=== PATIENT | female | born 1945 | race Caucasian/White ===

== ENCOUNTER 2023-03-31 17:54 | Emergency (ER) | payer MEDICARE, OTHER ==
[~2023-03-31] VITALS: Ht 160 cm; Wt 59.1 kg
[~2023-03-31 17:54] MED LIST: DENO60DI SUBCUT; HYDR12.55 PO; LEVO88TA39 PO; LOSA-415 PO; MULT-1085 PO; OMEP40CA21 PO; OSC500T PO; PRAV40TA3 PO; VIT1TABL66 PO
[2023-03-31 18:10] VITALS: BP 199/78; PULSE 64; RESP 16; TEMP 98; O2SAT 97
[2023-03-31 20:06] LABS: UA COLLECTION TYPE CLN CATCH MIDSTREAM
[2023-03-31 20:07] LABS: CLARITY,URINE BLOODY (Clear); COLOR,URINE RED (Yellow)
[2023-03-31 20:13] LABS: BACTERIA,URINE 1+ /HPF (Neg); RBC,URINE TNTC /HPF (0-2)
[2023-03-31 20:14] LABS: MUCUS STRANDS NONE SEEN /LPF (Neg); SQUAMOUS EPITHELIAL CELL,UR NONE SEEN /LPF (FEW)
[2023-03-31] MEDS ORDERED: phenazopyridine 100mg tablet PO ONE (21:40)
[2023-03-31] MEDS ORDERED: nitrofuran monohydrate/nitrofuran macrocrysal 100 MG (MacroBID) capsule PO ONE (21:40)
[2023-03-31] MEDS ORDERED: NITR100C PO (21:55)
== END 2023-03-31 22:29 | disposition home or self-care (01) ==
LOC: ER 17:57
DX: R31.9 Hematuria, unspecified (principal); N39.0 Urinary tract infection, site not specified; I10 Essential (primary) hypertension; E03.9 Hypothyroidism, unspecified; Z91.040 Latex allergy status; Z79.899 Other long term (current) drug therapy; Z90.710 Acquired absence of both cervix and uterus
CPT/HCPCS: 81001; 87077; 87088; 87186; 99284